=== PATIENT | female | born 1975 | race Caucasian/White ===

== ENCOUNTER 2017-04-22 20:01 | Emergency (ER) | payer BC ==
[2017-04-22 20:24] VITALS: O2SAT 98
--- NOTE | 2017-04-22 20:29 | ERPHSYRPT ---
- History of Present Illness Time Seen by Provider: 04/22/17 20:25 Source: patient Exam Limitations: no limitations Patient Subjective Stated Complaint: raheel states she is 5 weeks out from a gastric sleeve and shes just went back to work this week andshes feeling tired and week she thinks shes not been getting her fluids in today. Triage Nursing Assessment: pt alert and orientedx3, ambulates well, gait is steady, pupils perrla3, pulses equal bialteral radius, lung sounds clear, bowel soundsx4, stomach non tender incision sites looks good healed up. patient skin intact clean and dry. Physician History: PT HAD GASTRIC SLEEVE SURGERY AT [facility] ON 03/17/17 AND SINCE HAS HAD NAUSEA AND HAS FELT TIRED. PT COMES TO [facility] ER FOR EVALUATION FOR POSSIBLE DEHYDRATION. PT DENIES CHEST PAIN, SHORTNESS OF AIR, VOMITING; ADMITS TO ABDOMINAL PAIN SINCE SURGERY WHICH IS GETTING BETTER. LAST BM WAS TODAY AND DIARRHEAL BUT SMALL IN AMOUNT. PT STATES SHE HAD A 101.5 DEGREE TEMPERATURE TODAY. Allergies/Adverse Reactions: No Known Drug Allergies Allergy (Verified 04/22/17 20:09) Hx Tetanus, Diphtheria Vaccination/Date Given: Yes Hx Influenza Vaccination/Date Given: No Hx Pneumococcal Vaccination/Date Given: No Immunizations Up to Date: Yes - Review of Systems Constitutional: Fever, Fatigue Abdominal/Gastrointestinal: Abdominal Pain, Nausea, No Vomiting Endocrine: No Excessive Sweating All Other Systems: Reviewed and Negative - Past Medical History Pertinent Past Medical History: No - Past Surgical History Past Surgical History: Yes Other Surgical History: had gastric sleeve surgery 5 weeks ago - Social History Smoking Status: Never smoker Exposure to second hand smoke: No Drug Use: none - Nursing Vital Signs Nursing Vital Signs: Initial Vital Signs Temperature 98.2 F Temperature Source Oral Pulse Rate 82 Respiratory Rate 18 Blood Pressure [Right Arm] 120/78 Pain Intensity 0 - Physical Exam General Appearance: no apparent distress Eye Exam: PERRL/EOMI Ears, Nose, Throat Exam: pharynx normal, moist mucous membranes Neck Exam: normal inspection Respiratory Exam: lungs clear Cardiovascular Exam: normal heart sounds Gastrointestinal/Abdomen Exam: soft, normal bowel sounds, tenderness (MINIMAL DIFFUSE TENDERNESS; INCISIONS WELL HEALED WITHOUT EXUDATE.) Back Exam: normal range of motion Extremity Exam: normal inspection, No swelling Neurologic Exam: alert, cooperative Skin Exam: warm, dry SpO2 Interpretation: normal SpO2: 98 Oxygen Delivery: Room Air - Course Nursing assessment & vital signs reviewed: Yes Ordered Tests: Active Orders 24 hr Category Date Time Status AMYLASE Stat Lab 04/22/17 20:40 Completed CBC W DIFF Stat Lab 04/22/17 20:40 Completed CMP Stat Lab 04/22/17 20:40 Completed HCG QUALITATIVE,SERUM Stat Lab 04/22/17 20:40 Completed LIPASE Stat Lab 04/22/17 20:40 Completed MAG [MAGNESIUM] Stat Lab 04/22/17 20:40 Completed Manual Differential NC Stat Lab 04/22/17 20:40 Completed UA W/RFX UR CULTURE Stat Lab 04/22/17 20:40 Completed Urine Triage Profile Stat Lab 04/22/17 20:40 Completed Lab/Rad Data: Laboratory Result Diagrams 04/22/17 20:40 04/22/17 20:40 Laboratory Results 04/22/17 04/22/17 04/22/17 Range/Units 20:40 20:40 20:40 WBC (4.0-10.5) K/mm3 RBC (4.1-5.4) M/mm3 Hgb (12.0-16.0) gm/dl Hct (35-47) % MCV (78-100) fl MCH (26-32) pg MCHC (32-36) g/dl RDW (11.5-14.0) % Plt Count (150-450) K/mm3 MPV (6-9.5) fl Sodium (136-145) mEq/L Potassium (3.5-5.1) mEq/L Chloride (98-107) mEq/L Carbon Dioxide (21-32) mEq/L Anion Gap (5-15) MEQ/L BUN (9-20) mg/dL Creatinine (0.55-1.30) mg/dl Estimated GFR ML/MIN Glucose (70-110) MG/DL Calcium (8.5-10.1) mg/dL Magnesium 1.8 (1.8-2.4) mg/dL Total Bilirubin (0.2-1.0) mg/dL AST (15-37) U/L ALT (12-78) U/L Alkaline Phosphatase (46-116) U/L Serum Total Protein (6.4-8.2) gm/dL Albumin (3.4-5.0) g/dL Amylase (25-115) U/L Lipase (73-393) U/L Serum , Qual (Negative) Ur Collection Type CLEAN CATCH Urine Color YELLOW (YELLOW) Urine Appearance CLEAR (CLEAR) Urine pH 6.0 (5-6) Ur Specific Celina 1.010 (1.005-1.025) Urine Protein NEGATIVE (Negative) Urine Ketones LARGE (NEGATIVE) Urine Blood NEGATIVE (0-5) William/ul Urine Nitrite NEGATIVE (NEGATIVE) Urine Bilirubin NEGATIVE (NEGATIVE) Urine Urobilinogen NORMAL (0-1) mg/dL Ur Leukocyte Esterase NEGATIVE (NEGATIVE) Urine Glucose NEGATIVE (NEGATIVE) mg/dL Urine Opiates Level NEG. (NEGATIVE) Ur Methadone NEG. (NEGATIVE) Urine Barbiturates NEG. (NEGATIVE) Ur Phencyclidine (PCP) NEG. (NEGATIVE) Urine Amphetamine NEG. (NEGATIVE) U Benzodiazepine Level NEG. (NEGATIVE) Urine Cocaine NEG. (NEGATIVE) Urine Marijuana (THC) NEG. (NEGATIVE) Specimen Received 04/22/1704/22/17 04/22/17 04/22/17 Range/Units 20:40 20:40 20:40 WBC 9.4 (4.0-10.5) K/mm3 RBC 4.34 (4.1-5.4) M/mm3 Hgb 12.0 (12.0-16.0) gm/dl Hct 35.6 (35-47) % MCV 82.0 (78-100) fl MCH 27.6 (26-32) pg MCHC 33.7 (32-36) g/dl RDW 12.5 (11.5-14.0) % Plt Count 307 (150-450) K/mm3 MPV 10.2 H (6-9.5) fl Sodium 139 (136-145) mEq/L Potassium 3.5 (3.5-5.1) mEq/L Chloride 102 (98-107) mEq/L Carbon Dioxide 23.0 (21-32) mEq/L Anion Gap 17.0 H (5-15) MEQ/L BUN 8 L (9-20) mg/dL Creatinine 0.70 (0.55-1.30) mg/dl Estimated GFR > 60 ML/MIN Glucose 106 (70-110) MG/DL Calcium 9.8 (8.5-10.1) mg/dL Magnesium (1.8-2.4) mg/dL Total Bilirubin 1.30 H (0.2-1.0) mg/dL AST 17 (15-37) U/L ALT 35 (12-78) U/L Alkaline Phosphatase 92 (46-116) U/L Serum Total Protein 7.5 (6.4-8.2) gm/dL Albumin 3.3 L (3.4-5.0) g/dL Amylase 50 (25-115) U/L Lipase 245 (73-393) U/L Serum , Qual NEGATIVE (Negative) Ur Collection Type Urine Color (YELLOW) Urine Appearance (CLEAR) Urine pH (5-6) Ur Specific Celina (1.005-1.025) Urine Protein (Negative) Urine Ketones (NEGATIVE) Urine Blood (0-5) William/ul Urine Nitrite (NEGATIVE) Urine Bilirubin (NEGATIVE) Urine Urobilinogen (0-1) mg/dL Ur Leukocyte Esterase (NEGATIVE) Urine Glucose (NEGATIVE) mg/dL Urine Opiates Level (NEGATIVE) Ur Methadone (NEGATIVE) Urine Barbiturates (NEGATIVE) Ur Phencyclidine (PCP) (NEGATIVE) Urine Amphetamine (NEGATIVE) U Benzodiazepine Level (NEGATIVE) Urine Cocaine (NEGATIVE) Urine Marijuana (THC) (NEGATIVE) Specimen Received - Departure Time of Disposition: 22:01 Departure Disposition: Home Clinical Impression: NAUSEA, S/P GASTRIC SLEEVE SURGERY 03/17/17. Condition: Stable Critical Care Time: No Instructions: Nausea -- Adult Additional Instructions: FOLLOW UP WITH PRIVATE DOCTOR TOMORROW. Prescriptions: Promethazine HCl 25 mg [Phenergan 25 mg] 25 mg PO Q4H PRN PRN #14 tablet PRN Reason: Nausea/Vomiting
[2017-04-22 20:55] VITALS: BP 120/78; PULSE 82
[2017-04-22 21:01] LABS: Mean Corpuscular Hemoglobin 27.6 pg (26-32); Mean Platelet Volume 10.2 fl (6-9.5); Platelet Count 307 K/mm3 (150-450); Red Blood Count 4.34 M/mm3 (4.1-5.4); Red Cell Distribution Width 12.5 % (11.5-14.0); White Blood Count 9.4 K/mm3 (4.0-10.5)
[2017-04-22 21:04] LABS: ADD URINE CULTURE? NO (NO); Bilirubin NEGATIVE (NEGATIVE); Blood NEGATIVE Ery/ul (0-5); COMPLETE URINE MICROSCOPIC? NO; Collection Type CLEAN CATCH; Glucose NEGATIVE (NEGATIVE); Leukocyte Esterase NEGATIVE (NEGATIVE)
[2017-04-22 21:28] LABS: ALBUMIN 3.3 g/dL (3.4-5.0); ALKALINE PHOSPHATASE 92 U/L (46-116); BLOOD UREA NITROGEN 8 mg/dL (9-20); CHLORIDE 102 mEq/L (98-107); Glucose 106 MG/DL (70-110); LIPASE 245 U/L (73-393); Potassium 3.5 mEq/L (3.5-5.1); SGOT/AST 17 U/L (15-37); SGPT/ALT 35 U/L (12-78); SODIUM 139 mEq/L (136-145); Total Protein 7.5 gm/dL (6.4-8.2)
[2017-04-22 22:48] LABS: ATYPICAL LYMPHS 3 %; Platelet Estimate NORMAL (NORMAL); Total Cells Counted 100
== END 2017-04-22 22:09 | disposition home or self-care (01) ==
LOC: ED 20:01
DX: K95.09 Other complications of gastric band procedure (principal); R11.0 Nausea
CPT/HCPCS: 36415; 80053; 80307; 81002; 82150; 83690; 83735; 84703; 85025; 99284